=== PATIENT | male | born 1945 | race Caucasian/White ===

== ENCOUNTER 2018-03-06 14:54 | Outpatient (REF) | payer MEDICARE, SELFPAY ==
[2018-03-06 16:02] LABS: Abs Immature Grans 0.01 k/cumm (0.0-0.09); Absolute Basophil Count 0.04 k/cumm (0.0-0.2); Absolute Eosinophil Count 0.18 k/cumm (0.0-0.7); Absolute Lymphocyte Count 0.56 k/cumm (1.2-3.4); Absolute Monocyte Count 0.81 k/cumm (0.11-0.7); Basophils % 0.6; Eosinophils % 2.9; HCT 34.5 % (40.0-50.0); HGB 11.5 g/dL (13.5-17.5); Immature Grans % 0.2; Mean Corp. HGB Concentration 33.3 g/dL (32.0-36.0); Mean Corpuscular Hemoglobin 31.7 pg (27.0-33.0); Mean Platelet Volume 8.8 fL (8.0-11.0); Monocytes % 13.1; Neutrophils % 74.2; Platelet Count 257 x1000/uL (130-400); RBC 3.63 m/cumm (4.50-6.00); RBC Distribution Width 12.9 % (11.8-14.1)
[2018-03-06 16:26] LABS: ALT 13 U/L (12-78); AST 22 U/L (15-37); Albumin 2.6 g/dL (3.4-5.0); Alkaline Phosphatase 86 U/L (46-116); Anion Gap 10.9 mmol/L (3-11); BUN 12 mg/dL (7-18); Bilirubin, Total 0.7 mg/dL (0.2-1.0); CO2 23.1 mmol/L (21.0-32.0); CREATININE 1.11 mg/dL (0.70-1.30); Calcium 8.7 mg/dL (8.5-10.1); Chloride 100 mmol/L (98-107); Glucose 134 mg/dL (70-100); Potassium 3.9 mmol/L (3.5-5.1); Sodium 134 mmol/L (136-145); Total Protein 6.9 g/dL (6.4-8.2)
== END 2018-03-06 15:14 ==
LOC: LBN 14:54
PROVIDERS: PCP Family Medicine; Visit Provider Family Medicine
DX: R78.81 Bacteremia (principal)
CPT/HCPCS: 80053; 85025

== ENCOUNTER 2018-03-13 12:59 | Outpatient (REF) | payer MEDICARE, SELFPAY ==
[2018-03-13 14:49] LABS: Abs Immature Grans 0.01 k/cumm (0.0-0.09); Absolute Basophil Count 0.05 k/cumm (0.0-0.2); Absolute Eosinophil Count 0.24 k/cumm (0.0-0.7); Absolute Lymphocyte Count 0.56 k/cumm (1.2-3.4); Absolute Monocyte Count 0.76 k/cumm (0.11-0.7); Absolute Neutrophil Count 5.45 k/cumm (1.2-6.7); Basophils % 0.7; Eosinophils % 3.4; HGB 11.1 g/dL (13.5-17.5); Immature Grans % 0.1; Lymphocytes % 7.9; Mean Corp. HGB Concentration 32.6 g/dL (32.0-36.0); Mean Corpuscular Hemoglobin 31.5 pg (27.0-33.0); Mean Corpuscular Volume 96.6 fL (80-95); Mean Platelet Volume 8.8 fL (8.0-11.0); Monocytes % 10.7; Neutrophils % 77.2; Platelet Count 246 x1000/uL (130-400); RBC 3.52 m/cumm (4.50-6.00); RBC Distribution Width 13.2 % (11.8-14.1); White Blood Cell Count 7.07 k/cumm (4.4-10.8)
[2018-03-13 15:04] LABS: ALT 13 U/L (12-78); AST 25 U/L (15-37); Albumin 2.6 g/dL (3.4-5.0); Alkaline Phosphatase 83 U/L (46-116); Anion Gap 8.5 mmol/L (3-11); BUN 11 mg/dL (7-18); Bilirubin, Total 0.5 mg/dL (0.2-1.0); CO2 26.5 mmol/L (21.0-32.0); CREATININE 1.23 mg/dL (0.70-1.30); Calcium 8.6 mg/dL (8.5-10.1); Chloride 101 mmol/L (98-107); Estimated GFR 57.52 (mL/min/1.73m2); Glucose 106 mg/dL (70-100); Potassium 3.9 mmol/L (3.5-5.1); Sodium 136 mmol/L (136-145); Total Protein 6.6 g/dL (6.4-8.2)
== END 2018-03-13 13:19 ==
LOC: LBN 12:59
PROVIDERS: PCP Family Medicine; Visit Provider Internal Medicine
DX: R78.81 Bacteremia (principal)
CPT/HCPCS: 80053; 85025

== ENCOUNTER 2018-03-20 14:44 | Outpatient (REF) | payer MEDICARE, SELFPAY ==
[2018-03-20 15:13] LABS: Abs Immature Grans 0.01 k/cumm (0.0-0.09); Absolute Basophil Count 0.03 k/cumm (0.0-0.2); Absolute Eosinophil Count 0.29 k/cumm (0.0-0.7); Absolute Lymphocyte Count 0.72 k/cumm (1.2-3.4); Absolute Monocyte Count 0.71 k/cumm (0.11-0.7); Absolute Neutrophil Count 3.81 k/cumm (1.2-6.7); Basophils % 0.5; Eosinophils % 5.2; HCT 34.6 % (40.0-50.0); HGB 11.2 g/dL (13.5-17.5); Immature Grans % 0.2; Lymphocytes % 12.9; Mean Corp. HGB Concentration 32.4 g/dL (32.0-36.0); Mean Corpuscular Hemoglobin 31.2 pg (27.0-33.0); Mean Corpuscular Volume 96.4 fL (80-95); Monocytes % 12.7; Neutrophils % 68.5; Platelet Count 218 x1000/uL (130-400); RBC 3.59 m/cumm (4.50-6.00); RBC Distribution Width 13.8 % (11.8-14.1); White Blood Cell Count 5.57 k/cumm (4.4-10.8)
[2018-03-20 15:24] LABS: ALT 10 U/L (12-78); AST 26 U/L (15-37); Albumin 2.7 g/dL (3.4-5.0); Alkaline Phosphatase 86 U/L (46-116); Anion Gap 10.1 mmol/L (3-11); BUN 17 mg/dL (7-18); Bilirubin, Total 0.4 mg/dL (0.2-1.0); CO2 26.9 mmol/L (21.0-32.0); Calcium 8.3 mg/dL (8.5-10.1); Chloride 102 mmol/L (98-107); Estimated GFR 53.96 (mL/min/1.73m2); Glucose 108 mg/dL (70-100); Potassium 3.9 mmol/L (3.5-5.1); Sodium 139 mmol/L (136-145); Total Protein 6.7 g/dL (6.4-8.2)
== END 2018-03-20 15:04 ==
LOC: LBN 14:44
PROVIDERS: PCP Family Medicine; Visit Provider Internal Medicine
DX: R78.81 Bacteremia (principal)
CPT/HCPCS: 80053; 85025

== ENCOUNTER 2018-03-27 15:31 | Outpatient (REF) | payer MEDICARE, OTHER, SELFPAY ==
[2018-03-27 16:54] LABS: Abs Immature Grans 0.01 k/cumm (0.0-0.09); Absolute Basophil Count 0.05 k/cumm (0.0-0.2); Absolute Eosinophil Count 0.28 k/cumm (0.0-0.7); Absolute Lymphocyte Count 0.67 k/cumm (1.2-3.4); Eosinophils % 5.8; HCT 31.5 % (40.0-50.0); HGB 10.3 g/dL (13.5-17.5); Immature Grans % 0.2; Lymphocytes % 13.9; Mean Corp. HGB Concentration 32.7 g/dL (32.0-36.0); Mean Corpuscular Hemoglobin 31.5 pg (27.0-33.0); Mean Corpuscular Volume 96.3 fL (80-95); Mean Platelet Volume 9.2 fL (8.0-11.0); Monocytes % 12.5; Neutrophils % 66.6; Platelet Count 183 x1000/uL (130-400); RBC 3.27 m/cumm (4.50-6.00); RBC Distribution Width 14.3 % (11.8-14.1); White Blood Cell Count 4.81 k/cumm (4.4-10.8)
[2018-03-27 17:58] LABS: ALT 14 U/L (12-78); AST 31 U/L (15-37); Albumin 2.7 g/dL (3.4-5.0); Alkaline Phosphatase 79 U/L (46-116); Anion Gap 9.1 mmol/L (3-11); BUN 22 mg/dL (7-18); Bilirubin, Total 0.3 mg/dL (0.2-1.0); CO2 27.9 mmol/L (21.0-32.0); Calcium 8.8 mg/dL (8.5-10.1); Chloride 103 mmol/L (98-107); Estimated GFR 49.54 (mL/min/1.73m2); Glucose 128 mg/dL (70-100); Potassium 3.8 mmol/L (3.5-5.1); Sodium 140 mmol/L (136-145); Total Protein 6.6 g/dL (6.4-8.2)
== END 2018-03-27 15:51 ==
LOC: LBN 15:31
PROVIDERS: PCP Family Medicine; Visit Provider Thoracic Surgery (Cardiothoracic Vascular Surgery)
DX: R78.81 Bacteremia (principal)
CPT/HCPCS: 80053; 85025

== ENCOUNTER 2018-04-03 15:25 | Outpatient (REF) | payer MEDICARE, OTHER, SELFPAY ==
[2018-04-03 16:10] LABS: Abs Immature Grans 0.01 k/cumm (0.0-0.09); Absolute Basophil Count 0.04 k/cumm (0.0-0.2); Absolute Eosinophil Count 0.27 k/cumm (0.0-0.7); Absolute Lymphocyte Count 0.78 k/cumm (1.2-3.4); Absolute Monocyte Count 0.68 k/cumm (0.11-0.7); Absolute Neutrophil Count 2.97 k/cumm (1.2-6.7); Basophils % 0.8; Eosinophils % 5.7; HCT 32.5 % (40.0-50.0); HGB 10.4 g/dL (13.5-17.5); Immature Grans % 0.2; Lymphocytes % 16.4; Mean Corpuscular Hemoglobin 31.2 pg (27.0-33.0); Mean Corpuscular Volume 97.6 fL (80-95); Mean Platelet Volume 9.4 fL (8.0-11.0); Monocytes % 14.3; Neutrophils % 62.6; Platelet Count 156 x1000/uL (130-400); RBC 3.33 m/cumm (4.50-6.00); RBC Distribution Width 14.5 % (11.8-14.1); White Blood Cell Count 4.75 k/cumm (4.4-10.8)
[2018-04-03 16:28] LABS: ALT 9 U/L (12-78); AST 30 U/L (15-37); Albumin 2.9 g/dL (3.4-5.0); Alkaline Phosphatase 81 U/L (46-116); Anion Gap 8.7 mmol/L (3-11); BUN 22 mg/dL (7-18); Bilirubin, Total 0.4 mg/dL (0.2-1.0); CO2 26.3 mmol/L (21.0-32.0); Calcium 8.4 mg/dL (8.5-10.1); Chloride 105 mmol/L (98-107); Estimated GFR 45.75 (mL/min/1.73m2); Glucose 96 mg/dL (70-100); Sodium 140 mmol/L (136-145); Total Protein 6.8 g/dL (6.4-8.2)
== END 2018-04-03 15:45 ==
LOC: LBN 15:25
PROVIDERS: PCP Family Medicine; Visit Provider Internal Medicine
DX: R78.81 Bacteremia (principal)
CPT/HCPCS: 80053; 85025

== ENCOUNTER 2018-08-30 08:42 | Outpatient (CLI) | payer OTHER, SELFPAY ==
[2018-08-30 12:37] LABS: HCT 40.5 % (40.0-50.0); HGB 13.2 g/dL (13.5-17.5); Mean Corp. HGB Concentration 32.6 g/dL (32.0-36.0); Mean Corpuscular Hemoglobin 31.7 pg (27.0-33.0); Mean Corpuscular Volume 97.1 fL (80-95); Mean Platelet Volume 9.7 fL (8.0-11.0); Platelet Count 147 x1000/uL (130-400); RBC 4.17 m/cumm (4.50-6.00); RBC Distribution Width 13.5 % (11.8-14.1); White Blood Cell Count 5.56 k/cumm (4.4-10.8)
[2018-08-30 13:07] LABS: Anion Gap 7.8 mmol/L (3-11); BUN 31 mg/dL (7-18); CO2 27.2 mmol/L (21.0-32.0); CREATININE 1.65 mg/dL (0.70-1.30); Calcium 9.1 mg/dL (8.5-10.1); Chloride 108 mmol/L (98-107); Estimated GFR 40.87 (mL/min/1.73m2); Glucose 96 mg/dL (70-100); Potassium 4.1 mmol/L (3.5-5.1); Sodium 143 mmol/L (136-145)
== END 2018-08-30 09:02 ==
PROVIDERS: PCP Family Medicine; Visit Provider Family Medicine
DX: Z01.30 Encounter for examination of blood pressure without abnormal findings (principal); D64.9 Anemia, unspecified
CPT/HCPCS: 36415; 80048; 85027

== ENCOUNTER 2018-12-01 08:46 | Outpatient (CLI) | payer OTHER, SELFPAY ==
[2018-12-01 10:20] LABS: Abs Immature Grans 0.03 k/cumm (0.0-0.09); Absolute Basophil Count 0.04 k/cumm (0.0-0.2); Absolute Eosinophil Count 0.19 k/cumm (0.0-0.7); Absolute Lymphocyte Count 0.48 k/cumm (1.2-3.4); Absolute Monocyte Count 0.87 k/cumm (0.11-0.7); Absolute Neutrophil Count 3.43 k/cumm (1.2-6.7); Basophils % 0.8; Eosinophils % 3.8; HCT 40.9 % (40.0-50.0); HGB 14.2 g/dL (13.5-17.5); Immature Grans % 0.6; Lymphocytes % 9.5; Mean Corp. HGB Concentration 34.7 g/dL (32.0-36.0); Mean Corpuscular Hemoglobin 32.6 pg (27.0-33.0); Mean Platelet Volume 9.3 fL (8.0-11.0); Monocytes % 17.3; Platelet Count 175 x1000/uL (130-400); RBC 4.35 m/cumm (4.50-6.00); RBC Distribution Width 14.5 % (11.8-14.1); White Blood Cell Count 5.04 k/cumm (4.4-10.8)
[2018-12-01 10:38] LABS: Anion Gap 12.3 mmol/L (3-11); BUN 35 mg/dL (7-18); CO2 22.7 mmol/L (21.0-32.0); Calcium 9.2 mg/dL (8.5-10.1); Chloride 106 mmol/L (98-107); Estimated GFR 39.49 (mL/min/1.73m2); Glucose 109 mg/dL (70-100); Potassium 3.8 mmol/L (3.5-5.1); Sodium 141 mmol/L (136-145)
== END 2018-12-01 09:06 ==
PROVIDERS: PCP Family Medicine; Visit Provider Family Medicine
DX: J40 Bronchitis, not specified as acute or chronic (principal); R06.02 Shortness of breath; I10 Essential (primary) hypertension
CPT/HCPCS: 36415; 80048; 85025

== ENCOUNTER 2019-01-24 09:11 | Outpatient (CLI) | payer OTHER, SELFPAY ==
[2019-01-24 10:50] LABS: Anion Gap 8.2 mmol/L (3-11); BUN 22 mg/dL (7-18); CO2 24.8 mmol/L (21.0-32.0); CREATININE 1.45 mg/dL (0.70-1.30); Calcium 9.2 mg/dL (8.5-10.1); Chloride 108 mmol/L (98-107); Estimated GFR 47.44 (mL/min/1.73m2); Glucose 115 mg/dL (70-100); Potassium 3.8 mmol/L (3.5-5.1); Sodium 141 mmol/L (136-145)
== END 2019-01-24 09:31 ==
PROVIDERS: PCP Family Medicine; Visit Provider Family Medicine
DX: R06.02 Shortness of breath (principal); J40 Bronchitis, not specified as acute or chronic
CPT/HCPCS: 36415; 80048

== ENCOUNTER 2019-02-09 02:40 | Outpatient (CLI) | payer OTHER, SELFPAY ==
[2019-02-09 11:18] LABS: INR 1.6 (0.9-1.1); Prothrombin Time 15.7 sec (9.3-11.0)
== END 2019-02-09 03:00 ==
PROVIDERS: PCP Family Medicine; Visit Provider Family Medicine
DX: I48.91 Unspecified atrial fibrillation (principal); Z79.01 Long term (current) use of anticoagulants
CPT/HCPCS: 36415; 85610

== ENCOUNTER 2019-02-13 08:57 | Outpatient (CLI) | payer OTHER, SELFPAY ==
[2019-02-13 11:07] LABS: INR 2.1 (0.9-1.1); Prothrombin Time 20.3 sec (9.3-11.0)
== END 2019-02-13 09:17 ==
PROVIDERS: PCP Family Medicine; Visit Provider Family Medicine
DX: I48.91 Unspecified atrial fibrillation (principal); Z79.01 Long term (current) use of anticoagulants
CPT/HCPCS: 36415; 85610

== ENCOUNTER 2019-02-19 01:55 | Outpatient (CLI) | payer OTHER, SELFPAY ==
[2019-02-19 11:53] LABS: INR 2.4 (0.9-1.1); Prothrombin Time 23.4 sec (9.3-11.0)
== END 2019-02-19 02:15 ==
PROVIDERS: PCP Family Medicine; Visit Provider Family Medicine
DX: I48.91 Unspecified atrial fibrillation (principal); Z79.01 Long term (current) use of anticoagulants
CPT/HCPCS: 36415; 85610

== ENCOUNTER 2019-02-26 02:41 | Outpatient (CLI) | payer OTHER, SELFPAY ==
[2019-02-26 11:28] LABS: INR 2.3 (0.9-1.1); Prothrombin Time 22.7 sec (9.3-11.0)
== END 2019-02-26 03:01 ==
PROVIDERS: PCP Family Medicine; Visit Provider Family Medicine
DX: I48.91 Unspecified atrial fibrillation (principal); Z79.01 Long term (current) use of anticoagulants
CPT/HCPCS: 36415; 85610

== ENCOUNTER 2019-03-12 20:14 | Outpatient (REF) | payer OTHER, SELFPAY ==
[2019-03-12 13:33] LABS: INR 1.3 (0.9-1.1); Prothrombin Time 12.7 sec (9.3-11.0)
== END 2019-03-12 20:34 ==
LOC: LOS 20:14
PROVIDERS: PCP Family Medicine; Visit Provider Family Medicine
DX: I48.91 Unspecified atrial fibrillation (principal); Z79.01 Long term (current) use of anticoagulants
CPT/HCPCS: 36415; 85610

== ENCOUNTER 2019-03-19 01:44 | Outpatient (CLI) | payer OTHER, SELFPAY ==
[2019-03-19 11:31] LABS: INR 1.6 (0.9-1.1); Prothrombin Time 15.5 sec (9.3-11.0)
== END 2019-03-19 02:04 ==
PROVIDERS: PCP Family Medicine; Visit Provider Family Medicine
DX: I48.91 Unspecified atrial fibrillation (principal); Z79.01 Long term (current) use of anticoagulants
CPT/HCPCS: 36415; 85610

== ENCOUNTER 2019-03-26 01:54 | Outpatient (CLI) | payer OTHER, SELFPAY ==
[2019-03-26 11:44] LABS: INR 1.7 (0.9-1.1); Prothrombin Time 17.1 sec (9.3-11.0)
== END 2019-03-26 02:14 ==
PROVIDERS: PCP Family Medicine; Visit Provider Family Medicine
DX: I48.91 Unspecified atrial fibrillation (principal); Z79.01 Long term (current) use of anticoagulants
CPT/HCPCS: 36415; 85610

== ENCOUNTER 2019-04-02 02:07 | Outpatient (CLI) | payer OTHER, SELFPAY ==
[2019-04-02 12:22] LABS: INR 2.9 (0.9-1.1); Prothrombin Time 28.2 sec (9.3-11.0)
== END 2019-04-02 02:27 ==
PROVIDERS: PCP Family Medicine; Visit Provider Family Medicine
DX: I48.91 Unspecified atrial fibrillation (principal); Z79.01 Long term (current) use of anticoagulants
CPT/HCPCS: 36415; 85610

== ENCOUNTER 2019-04-16 02:41 | Outpatient (CLI) | payer OTHER, SELFPAY ==
[2019-04-16 11:14] LABS: INR 2.5 (0.9-1.1); Prothrombin Time 24.8 sec (9.3-11.0)
== END 2019-04-16 03:01 ==
PROVIDERS: PCP Family Medicine; Visit Provider Family Medicine
DX: I48.91 Unspecified atrial fibrillation (principal); Z79.01 Long term (current) use of anticoagulants
CPT/HCPCS: 36415; 85610

== ENCOUNTER 2019-05-21 02:08 | Outpatient (CLI) | payer MEDICARE, OTHER, SELFPAY ==
[2019-05-21 13:01] LABS: INR 1.6 (0.9-1.1); Prothrombin Time 16.3 sec (9.3-11.0)
== END 2019-05-21 02:28 ==
PROVIDERS: PCP Family Medicine; Visit Provider Family Medicine
DX: I48.91 Unspecified atrial fibrillation (principal); Z79.01 Long term (current) use of anticoagulants
CPT/HCPCS: 36415; 85610

== ENCOUNTER 2019-05-28 07:42 | Outpatient (CLI) | payer MEDICARE, OTHER, SELFPAY ==
[2019-05-28 10:43] LABS: INR 2.5 (0.9-1.1); Prothrombin Time 24.5 sec (9.3-11.0)
== END 2019-05-28 08:02 ==
PROVIDERS: PCP Family Medicine; Visit Provider Family Medicine
DX: I48.91 Unspecified atrial fibrillation (principal); Z79.01 Long term (current) use of anticoagulants
CPT/HCPCS: 36415; 85610

== ENCOUNTER 2019-06-15 00:29 | Outpatient (CLI) | payer MEDICARE, OTHER, SELFPAY ==
[2019-06-15 12:27] LABS: INR 3.6 (0.9-1.1)
== END 2019-06-15 00:49 ==
PROVIDERS: PCP Family Medicine; Visit Provider Family Medicine
DX: I48.91 Unspecified atrial fibrillation (principal); Z79.01 Long term (current) use of anticoagulants
CPT/HCPCS: 36415; 85610

== ENCOUNTER 2019-06-22 10:27 | Outpatient (CLI) | payer MEDICARE, OTHER, SELFPAY ==
[2019-06-22 13:05] LABS: INR 2.3 (0.9-1.1); Prothrombin Time 22.2 sec (9.3-11.0)
== END 2019-06-22 10:47 ==
PROVIDERS: PCP Family Medicine; Visit Provider Family Medicine
DX: I48.91 Unspecified atrial fibrillation (principal); Z79.01 Long term (current) use of anticoagulants
CPT/HCPCS: 36415; 85610

== ENCOUNTER 2019-07-02 00:49 | Outpatient (CLI) | payer MEDICARE, OTHER, SELFPAY ==
[2019-07-02 10:59] LABS: INR 3.8 (0.9-1.1); Prothrombin Time 36.9 sec (9.3-11.0)
== END 2019-07-02 01:09 ==
PROVIDERS: PCP Family Medicine; Visit Provider Family Medicine
DX: I48.91 Unspecified atrial fibrillation (principal); Z79.01 Long term (current) use of anticoagulants
CPT/HCPCS: 36415; 85610

== ENCOUNTER 2019-07-09 09:24 | Outpatient (CLI) | payer MEDICARE, OTHER, SELFPAY ==
[2019-07-09 12:42] LABS: INR 2.2 (0.9-1.1); Prothrombin Time 21.4 sec (9.3-11.0)
== END 2019-07-09 09:44 ==
PROVIDERS: PCP Family Medicine; Visit Provider Family Medicine
DX: I48.91 Unspecified atrial fibrillation (principal); Z79.01 Long term (current) use of anticoagulants
CPT/HCPCS: 36415; 85610

== ENCOUNTER 2019-07-23 01:56 | Outpatient (CLI) | payer MEDICARE, OTHER, SELFPAY ==
[2019-07-23 12:17] LABS: INR 2.1 (0.9-1.1); Prothrombin Time 20.6 sec (9.3-11.0)
== END 2019-07-23 02:16 ==
PROVIDERS: PCP Family Medicine; Visit Provider Family Medicine
DX: I48.0 Paroxysmal atrial fibrillation (principal); Z79.01 Long term (current) use of anticoagulants
CPT/HCPCS: 36415; 85610

== ENCOUNTER 2019-11-07 02:34 | Outpatient (CLI) | payer MEDICARE, OTHER, SELFPAY ==
[2019-11-07 09:42] LABS: HCT 42.8 % (40.0-50.0); HGB 14.8 g/dL (13.5-17.5); Mean Corp. HGB Concentration 34.6 g/dL (32.0-36.0); Mean Corpuscular Hemoglobin 32.5 pg (27.0-33.0); Mean Corpuscular Volume 93.9 fL (80-95); Mean Platelet Volume 9.4 fL (8.0-11.0); Platelet Count 148 x1000/uL (130-400); RBC 4.56 m/cumm (4.50-6.00); RBC Distribution Width 14.3 % (11.8-14.1); White Blood Cell Count 5.29 k/cumm (4.4-10.8)
[2019-11-07 10:12] LABS: Anion Gap 9.7 mmol/L (3-11); BUN 25 mg/dL (7-18); CO2 25.3 mmol/L (21.0-32.0); CREATININE 1.41 mg/dL (0.70-1.30); Calcium 9.1 mg/dL (8.5-10.1); Chloride 106 mmol/L (98-107); Estimated GFR 48.87 (mL/min/1.73m2); Glucose 105 mg/dL (74-106); Potassium 4.3 mmol/L (3.5-5.1); Sodium 141 mmol/L (136-145)
[2019-11-07 12:53] LABS: Calculated LDL 65 mg/dL (<100); Cholesterol 127 mg/dL (<200); HDL Cholesterol 54 mg/dL (40-60); TSH (W/Ref FT4) 0.49 uIU/mL (0.36-3.74); Triglyceride 43 mg/dL (<150)
== END 2019-11-07 02:54 ==
PROVIDERS: PCP Family Medicine; Visit Provider Family Medicine
DX: R50.9 Fever, unspecified (principal); E87.1 Hypo-osmolality and hyponatremia; E78.5 Hyperlipidemia, unspecified; E03.9 Hypothyroidism, unspecified
CPT/HCPCS: 36415; 80048; 80061; 85027; 84443

== ENCOUNTER 2019-12-25 04:42 | Outpatient (CLI) | payer MEDICARE, OTHER, SELFPAY ==
[2019-12-25 12:43] LABS: Prothrombin Time 20.1 sec (9.3-11.0)
== END 2019-12-25 05:02 ==
PROVIDERS: PCP Family Medicine; Visit Provider Family Medicine
DX: I48.91 Unspecified atrial fibrillation (principal); Z79.01 Long term (current) use of anticoagulants
CPT/HCPCS: 36415; 85610

== ENCOUNTER 2020-02-01 09:35 | Outpatient (CLI) | payer MEDICARE, OTHER, SELFPAY ==
[2020-02-01 12:42] LABS: CREATININE 1.19 mg/dL (0.70-1.30); Estimated GFR 59.44 (mL/min/1.73m2); Potassium 4.5 mmol/L (3.5-5.1)
[2020-02-01 12:49] LABS: INR 3.5 (0.9-1.1); Prothrombin Time 33.7 sec (9.3-11.0)
== END 2020-02-01 09:55 ==
PROVIDERS: PCP Family Medicine; Visit Provider Family Medicine
DX: I10 Essential (primary) hypertension (principal); I48.91 Unspecified atrial fibrillation
CPT/HCPCS: 36415; 82565; 84132; 85610

== ENCOUNTER 2020-02-11 03:19 | Outpatient (CLI) | payer MEDICARE, OTHER, SELFPAY ==
[2020-02-11 13:22] LABS: INR 2.3 (0.9-1.1); Prothrombin Time 22.9 sec (9.3-11.0)
== END 2020-02-11 03:39 ==
PROVIDERS: PCP Family Medicine; Visit Provider Family Medicine
DX: I48.0 Paroxysmal atrial fibrillation (principal); Z79.01 Long term (current) use of anticoagulants
CPT/HCPCS: 36415; 85610

== ENCOUNTER 2020-03-20 01:17 | Outpatient (CLI) | payer MEDICARE, OTHER, SELFPAY ==
[2020-03-20 12:37] LABS: INR 2.5 (0.9-1.1); Prothrombin Time 24.3 sec (9.3-11.0)
== END 2020-03-20 01:37 ==
PROVIDERS: PCP Family Medicine; Visit Provider Family Medicine
DX: I48.0 Paroxysmal atrial fibrillation (principal)
CPT/HCPCS: 36415; 85610

== ENCOUNTER 2020-04-25 04:42 | Outpatient (CLI) | payer MEDICARE, OTHER, SELFPAY ==
[2020-04-25 13:47] LABS: Prothrombin Time 21.2 sec (9.3-11.0)
[2020-04-25 13:50] LABS: INR 2.1 (0.9-1.1)
== END 2020-04-25 05:02 ==
PROVIDERS: PCP Family Medicine; Visit Provider Family Medicine
DX: I48.0 Paroxysmal atrial fibrillation (principal); Z79.01 Long term (current) use of anticoagulants
CPT/HCPCS: 36415; 85610

== ENCOUNTER 2020-07-23 03:54 | Outpatient (CLI) | payer MEDICARE, OTHER, SELFPAY ==
[2020-07-23 12:41] LABS: INR 2.3 (0.9-1.1); Prothrombin Time 22.5 sec (9.3-11.0)
== END 2020-07-23 03:55 | disposition home or self-care (01) ==
LOC: LBO 03:54
PROVIDERS: PCP Family Medicine; Visit Provider Family Medicine
DX: I48.0 Paroxysmal atrial fibrillation (principal); Z79.01 Long term (current) use of anticoagulants
CPT/HCPCS: 36415; 85610

== ENCOUNTER 2020-09-05 01:23 | Outpatient (CLI) | payer MEDICARE, OTHER, SELFPAY ==
[2020-09-05 12:37] LABS: INR 2.1 (0.9-1.1); Prothrombin Time 21.2 sec (9.3-11.0)
== END 2020-09-05 01:24 | disposition home or self-care (01) ==
LOC: LOS 01:23
PROVIDERS: PCP Family Medicine; Visit Provider Family Medicine
DX: I48.0 Paroxysmal atrial fibrillation (principal); Z79.01 Long term (current) use of anticoagulants
CPT/HCPCS: 36415; 85610

== ENCOUNTER 2020-10-27 02:33 | Outpatient (CLI) | payer MEDICARE, OTHER, SELFPAY ==
[2020-10-27 12:49] LABS: INR 1.5 (0.9-1.1)
== END 2020-10-27 02:34 | disposition home or self-care (01) ==
LOC: LOS 02:33
PROVIDERS: PCP Family Medicine; Visit Provider Family Medicine
DX: I48.0 Paroxysmal atrial fibrillation (principal); Z79.01 Long term (current) use of anticoagulants
CPT/HCPCS: 36415; 85610

== ENCOUNTER 2020-10-31 09:13 | Outpatient (CLI) | payer MEDICARE, OTHER, SELFPAY ==
[2020-10-31 12:48] LABS: CREATININE 1.3 mg/dL (0.70-1.30); Estimated GFR 53.53 (mL/min/1.73m2)
[2020-10-31 13:44] LABS: Hemoglobin A1C 5.4 % (<5.7)
== END 2020-10-31 09:14 | disposition home or self-care (01) ==
LOC: LOS 09:14
PROVIDERS: PCP Family Medicine; Referring Provider Family Medicine; Visit Provider Family Medicine
DX: E11.65 Type 2 diabetes mellitus with hyperglycemia (principal)
CPT/HCPCS: 36415; 82565; 83036

== ENCOUNTER 2020-11-13 04:05 | Outpatient (CLI) | payer MEDICARE, OTHER, SELFPAY ==
[2020-11-13 12:28] LABS: INR 2.1 (0.9-1.1); Prothrombin Time 20.3 sec (9.3-11.0)
== END 2020-11-13 04:06 | disposition home or self-care (01) ==
LOC: LOS 04:05
PROVIDERS: PCP Family Medicine; Visit Provider Family Medicine
DX: I48.0 Paroxysmal atrial fibrillation (principal); Z79.01 Long term (current) use of anticoagulants
CPT/HCPCS: 36415; 85610

== ENCOUNTER 2021-01-02 02:08 | Outpatient (CLI) | payer MEDICARE, OTHER, SELFPAY ==
[2021-01-02 12:08] LABS: INR 2.4 (0.9-1.1); Prothrombin Time 23.4 sec (9.3-11.0)
== END 2021-01-02 02:09 | disposition home or self-care (01) ==
LOC: LOS 02:08
PROVIDERS: PCP Family Medicine; Visit Provider Family Medicine
DX: I48.0 Paroxysmal atrial fibrillation (principal); Z79.01 Long term (current) use of anticoagulants
CPT/HCPCS: 36415; 85610

== ENCOUNTER 2021-01-14 18:34 | Outpatient (REF) | payer MEDICARE, OTHER, SELFPAY ==
[2021-01-16 10:51] LABS: COVID-19 RT-PCR UVMMC Result Positive (Negative)
== END 2021-01-14 18:35 | disposition home or self-care (01) ==
LOC: LBN 18:34
PROVIDERS: PCP Family Medicine; Visit Provider Family Medicine
DX: Z20.822 Contact with and (suspected) exposure to COVID-19 (principal)
CPT/HCPCS: U0003; U0005

== ENCOUNTER 2021-02-05 01:50 | Outpatient (CLI) | payer MEDICARE, OTHER, SELFPAY ==
[2021-02-05 13:05] LABS: INR 3.3 (0.9-1.1); Prothrombin Time 32.5 sec (9.3-11.0)
== END 2021-02-05 01:51 | disposition home or self-care (01) ==
LOC: LBO 01:50 → LOS 10:53
PROVIDERS: PCP Family Medicine; Visit Provider Family Medicine
DX: I48.0 Paroxysmal atrial fibrillation (principal); Z79.01 Long term (current) use of anticoagulants
CPT/HCPCS: 36415; 85610

== ENCOUNTER 2021-02-19 02:56 | Outpatient (CLI) | payer MEDICARE, OTHER, SELFPAY ==
[2021-02-19 12:50] LABS: INR 2.4 (0.9-1.1)
== END 2021-02-19 02:57 | disposition home or self-care (01) ==
LOC: LOS 02:56
PROVIDERS: PCP Family Medicine; Visit Provider Family Medicine
DX: I48.0 Paroxysmal atrial fibrillation (principal); Z79.01 Long term (current) use of anticoagulants
CPT/HCPCS: 36415; 85610

== ENCOUNTER 2021-02-26 17:49 | Outpatient (REF) | payer MEDICARE, OTHER, SELFPAY ==
[2021-02-26 19:05] LABS: Bilirubin Negative (Negative); Blood Large (Negative); Clarity Clear (Clear); Glucose Negative (Negative); Ketones Negative (Negative); Leukocyte Esterase Negative (Negative); Nitrite Negative (Negative); Urobilinogen 0.2 EU/dL (Up TO 0.2); pH 6.5 (5-8)
[2021-02-26 19:53] LABS: Bacteria Negative HPF (Negative); C & S Indicated? No; Crystals Negative HPF (Negative); Epithelial Cells Negative HPF (Negative); Mucus Negative (Negative); RBC >50 HPF (0-2); WBC Negative HPF (0-5)
== END 2021-02-26 17:50 | disposition home or self-care (01) ==
LOC: LBN 17:49
PROVIDERS: PCP Family Medicine; Visit Provider Physician Assistant
DX: Z79.01 Long term (current) use of anticoagulants (principal)
CPT/HCPCS: 81003; 81015

== ENCOUNTER 2021-07-20 04:22 | Outpatient (CLI) | payer MEDICARE, OTHER, SELFPAY ==
[2021-07-20 10:02] LABS: Prothrombin Time 33.6 sec (9.3-11.0)
[2021-07-20 10:04] LABS: INR 3.4 (0.9-1.1)
[2021-07-20 11:38] LABS: Anion Gap 8.5 mmol/L (3-11); BUN 24 mg/dL (7-18); CO2 26.5 mmol/L (21.0-32.0); CREATININE 1.2 mg/dL (0.70-1.30); Calculated LDL 64 mg/dL (<100); Chloride 105 mmol/L (98-107); Cholesterol 130 mg/dL (<200); Estimated GFR 58.56 (mL/min/1.73m2); Glucose 85 mg/dL (74-106); HDL Cholesterol 57 mg/dL (40-60); Potassium 4.2 mmol/L (3.5-5.1); Sodium 140 mmol/L (136-145); TSH (W/Ref FT4) 0.26 uIU/mL (0.36-3.74); Triglyceride 46 mg/dL (<150)
[2021-07-20 11:55] LABS: FREE T4 1.44 ng/dL (0.76-1.46)
== END 2021-07-20 04:23 | disposition home or self-care (01) ==
LOC: LBO 04:23
PROVIDERS: PCP Family Medicine; Visit Provider Family Medicine
DX: E78.5 Hyperlipidemia, unspecified (principal); E03.9 Hypothyroidism, unspecified; E87.1 Hypo-osmolality and hyponatremia; I48.91 Unspecified atrial fibrillation; Z79.01 Long term (current) use of anticoagulants
CPT/HCPCS: 36415; 80048; 80061; 84132; 84439; 84443; 85610

== ENCOUNTER 2021-10-21 04:01 | Outpatient (CLI) | payer MEDICARE, OTHER, SELFPAY ==
[2021-10-21 12:52] LABS: HGB 14.2 g/dL (13.5-17.5)
[2021-10-21 13:02] LABS: Prothrombin Time 28.2 sec (9.3-11.0)
[2021-10-21 14:18] LABS: Iron 84 ug/dL (65-175); Total Iron Binding Capacity 258 ug/dL (250-450)
[2021-10-21 14:24] LABS: CREATININE 1.3 mg/dL (0.70-1.30); Estimated GFR 53.39 (mL/min/1.73m2); Potassium 4.2 mmol/L (3.5-5.1); TSH (W/Ref FT4) 0.17 uIU/mL (0.36-3.74)
[2021-10-21 15:01] LABS: FREE T4 1.65 ng/dL (0.76-1.46)
== END 2021-10-21 04:02 | disposition home or self-care (01) ==
LOC: LOS 04:04
PROVIDERS: PCP Family Medicine; Visit Provider Family Medicine
DX: K63.5 Polyp of colon (principal); E03.9 Hypothyroidism, unspecified; I10 Essential (primary) hypertension; I48.0 Paroxysmal atrial fibrillation; Z79.01 Long term (current) use of anticoagulants
CPT/HCPCS: 36415; 82565; 83540; 83550; 84132; 84439; 84443; 85018; 85610

== ENCOUNTER 2021-11-17 18:23 | Outpatient (REF) | payer MEDICARE, OTHER, SELFPAY ==
[2021-11-19 10:58] LABS: COVID-19 RT-PCR UVMMC Result Negative (Negative)
== END 2021-11-17 18:24 | disposition home or self-care (01) ==
LOC: LBN 18:23
PROVIDERS: PCP Family Medicine; Visit Provider Family Medicine
DX: Z20.822 Contact with and (suspected) exposure to COVID-19 (principal); R05.8 Other specified cough
CPT/HCPCS: U0003

== ENCOUNTER 2022-01-04 09:50 | Outpatient (CLI) | payer MEDICARE, OTHER, SELFPAY ==
[2022-01-04 13:40] LABS: TSH (W/Ref FT4) 0.37 uIU/mL (0.36-3.74)
== END 2022-01-04 09:51 | disposition home or self-care (01) ==
LOC: LOS 09:51
PROVIDERS: PCP Family Medicine; Visit Provider Family Medicine
DX: E03.9 Hypothyroidism, unspecified (principal)
CPT/HCPCS: 36415; 84443